=== PATIENT | female | born 1970 | race Caucasian/White ===

== ENCOUNTER 2017-08-03 13:59 | Observation (INO) | END 2017-08-04 17:00 | disposition home or self-care (01) ==

== ENCOUNTER 2018-01-25 12:30 | Inpatient (IN) | END 2018-01-27 14:28 | disposition home or self-care (01) | DRG 379 ==

== ENCOUNTER 2018-03-14 12:52 | Emergency (ER) | END 2018-03-14 15:35 | disposition home or self-care (01) ==

== ENCOUNTER 2019-01-19 20:48 | Inpatient (IN) | payer MEDICAID ==
[~2019-01-19] VITALS: Ht 152.4 cm; Wt 72.8 kg
[~2019-01-19 20:48] MED LIST: NOL20 PO
[2019-01-19] MEDS ORDERED: SOD CHLORIDE 0.9% 1,000 ML IV STA (21:11)
[2019-01-19] MEDS ORDERED: ONDANSETRON 4 MG INJ IV STA (21:11)
[2019-01-19] MEDS ORDERED: MECLIZINE 12.5 MG TAB PO ONE (21:30)
[2019-01-19] MEDS ORDERED: ACETAMINOPHEN 325 MG TAB PO PRN (22:00)
[2019-01-19] MEDS ORDERED: CLOPIDOGREL 75 MG TAB PO ONE (22:00)
[2019-01-19] MEDS ORDERED: ASPIRIN 325 MG TAB PO ONE (22:00)
[2019-01-19] MEDS ORDERED: ONDANSETRON 4 MG INJ IV PRN (22:00)
[2019-01-19 23:45] VITALS: Ht 152.4 cm; Wt 72.8 kg
[2019-01-20] VITALS: BP 116/56; PULSE 52; RESP 18
[2019-01-20] MEDS ORDERED: ONDANSETRON 4 MG INJ IV PRN (00:30)
[2019-01-20] MEDS ORDERED: NON-FORMULARY/PATIENT OWN MED (Tamoxifen Citrate* 20 MG) PO SCH (00:30)
[2019-01-20] MEDS ORDERED: NACL 0.9% 3 ML SYG IV SCH (00:30)
[2019-01-20] MEDS ORDERED: ACETAMINOPHEN 325 MG TAB PO PRN (00:30)
[2019-01-20 04:00] VITALS: BP 112/50; PULSE 55; RESP 20
[2019-01-20 08:14] VITALS: BP 113/56; PULSE 62; RESP 18
[2019-01-20] MEDS ORDERED: TAMOXIFEN 10 MG TAB PO SCH (09:00)
[2019-01-20] MEDS ORDERED: CLOPIDOGREL 75 MG TAB PO SCH (09:00)
[2019-01-20] MEDS ORDERED: ASPIRIN (EC) 81 MG TAB PO SCH (09:00)
[2019-01-20] MEDS ORDERED: HEPARIN 5,000 UNIT/1 ML VIAL SC SCH (09:00)
[2019-01-20] MEDS ORDERED: SOD CHLORIDE 0.9% 100 ML ONE (09:50)
[2019-01-20] MEDS ORDERED: IOHEXOL 100 ML ONE (09:50)
[2019-01-20 12:00] VITALS: BP 112/54; PULSE 60; RESP 18
[2019-01-20 16:00] VITALS: BP 114/59; PULSE 58; RESP 18
[2019-01-20 19:32] VITALS: BP 131/62; PULSE 56; RESP 18
[2019-01-20] MEDS ORDERED: ATORVASTATIN 40 MG TAB PO SCH (21:00)
== END 2019-01-20 20:01 | disposition home or self-care (01) | DRG 149 ==
LOC: E/R 20:48 → 6WM 21:53
PROVIDERS: ADMIT Internal Medicine; ATTEND Internal Medicine
DX: R42 Dizziness and giddiness (principal); R51 Headache; H53.9 Unspecified visual disturbance; R26.89 Other abnormalities of gait and mobility; I69.398 Other sequelae of cerebral infarction; Z85.3 Personal history of malignant neoplasm of breast; Z90.11 Acquired absence of right breast and nipple; Z92.21 Personal history of antineoplastic chemotherapy
CPT/HCPCS: 36415; 70450; 70496; 70498; 70551; 71045; 80048; 80061; 80307; 81001; 81003; 82550; 82553; 82962; 83036; 84484; 85025; 85610; 85730; 92610; 93005; 93306; 96374; 97162; 97166; J1644; J2405; J7030; Q9967